=== PATIENT | male | born 2000 ===

== ENCOUNTER 2020-10-09 21:46 | Emergency (ER) | payer SELFPAY | END 2020-10-09 22:54 | disposition home or self-care (01) | LOC: ERS 21:46 | DX: R13.10 Dysphagia, unspecified (principal); R07.9 Chest pain, unspecified; R09.89 Other specified symptoms and signs involving the circulatory and respiratory systems; K21.9 Gastro-esophageal reflux disease without esophagitis; R11.0 Nausea; R05 Cough; Z79.899 Other long term (current) drug therapy | CPT/HCPCS: 71045; 93005 ==